=== PATIENT | female | born 1965 | race Caucasian/White ===

== ENCOUNTER 2017-06-06 13:48 | Emergency (ER) | payer SELFPAY ==
[~2017-06-06] VITALS: Ht 167.6 cm; Wt 48.0 kg
[2017-06-06 13:59] VITALS: BP 158/100
== END 2017-06-06 20:15 | disposition left against medical advice (07) ==
LOC: EDSEX 13:48 → ER 18:15
DX: R46.89 Other symptoms and signs involving appearance and behavior (principal); Z53.21 Procedure and treatment not carried out due to patient leaving prior to being seen by health care provider
CPT/HCPCS: 93005